=== PATIENT | female | born 1945 | race Caucasian/White ===

== ENCOUNTER → 2017-05-04 | Day surgery (SDC) | payer MEDICARE ==
[~2017-05-04] MED LIST: BUPIVACAINE HCL PF 0.5% 10 ML VIAL ONE; COZA50TA PO; ESTR.625 PO; FLUT1SPR9 EACH NARE; HYDR25TA5 PO; ISOSULFAN BLUE 50 MG/5 ML VIAL SQ ONE; KETOROLAC TROMETHAMINE 30 MG/ML (IVP) VIAL ONE; LACTATED RINGER'S 1000 ML INJ 1,000 ML ONE; MIDAZOLAM HCL 2 MG/2 ML VIAL ONE; MORPHINE SULFATE 4 MG/ML INJ ONE; ONDANSETRON HCL 4 MG/2 ML VIAL IV PUSH ONE; PROPOFOL 100 MG/10 ML INJ IV ONE; SODIUM CHLORIDE 0.9% INJ 10 ML ONE; ceFAZolin INJ 1,000 MG VIAL ONE; oxyCODONE/ACETAMINOPHEN 5 MG/325 MG TAB ONE
--- NOTE | 2017-05-04 18:57 | TN ---
cc: ALLY REDDY DATE OF SURGERY: 05/04/2017. PRINCIPAL DIAGNOSIS: Left breast cancer. POSTOPERATIVE DIAGNOSIS Left breast cancer. PROCEDURE PERFORMED: Left breast lumpectomy and left axillary sentinel lymph node biopsy with intraoperative radiation therapy. SURGEON: Ally Reddy MD. ANESTHESIA: General via LMA device. INDICATIONS FOR THE PROCEDURE: The patient is a 71-year-old female who presented with a clinical stage I palpable upper inner left breast mass consistent with carcinoma. MRI failed to demonstrate other abnormalities and she has opted for breast conservation and intraoperative therapy. FINDINGS AT SURGERY: Since the mass was palpable, no preoperative localization was required. Five sentinel lymph nodes were removed. #1 had a count of 16,155 and was 1+ blue. #2 had a count of 14,032 and was 1+ blue. #3 had a count of 289 and #4 had a count of 255 and these were not blue. Lymph node #5 had a count of 80 and was not blue. TouchPrep analysis was not performed. DESCRIPTION OF THE PROCEDURE IN DETAIL: After informed consent was obtained and site verification was performed, the patient was brought to the radiology suite where she underwent peritumoral radionuclide injection and full scan lymphoscintigraphy. No internal mammary enhancement was identified. She was then brought to the major operating room where she underwent general anesthesia via LMA device. She was given a single dose of IV Ancef and sequential compression hose were placed. Then 4 cc of half-strength Lymphazurin were injected in the subareolar left breast and a 5-minute massage was performed. The left breast and arm were then prepped and draped in sterile fashion. The palpable lesion was identified at 10 o'clock 2 cm from the nipple and the perimeter of the mass was marked on the skin. A periareolar skin incision was created and anesthetized with 0.5% Marcaine plain. Sharp and electrocautery dissection was performed circumferentially around the palpable mass and the specimen was oriented with two sutures anteriorly, one short suture superiorly, and one long suture laterally. Inspection of the specimen did demonstrate that the medial margin appeared close and this was sharply re-incised with a stitch on the new margin. The posterior margin was the pectoralis muscle and the tumor did not appear to involve the muscle. Hemostasis was easily obtained with electrocautery and the specimen was sent for permanent pathologic evaluation. The fascia and deep breast tissue adjacent to the muscle were then mobilized circumferentially and a 3-0 Vicryl pursestring suture was used to reapproximate the tissue. A 3.5 cm applicator was placed into the lumpectomy wound and ultrasound did demonstrate good conformance of the applicator to the cavity. Superiorly and inferiorly, the skin distance was greater than 1 cm and medially and laterally, the skin distance to the applicator was greater than 7 mm. The applicator was then placed in a sterile drape and secured to the radiation treatment device. A 2-0 Prolene pursestring suture was placed in the subcutaneous tissue. The applicator was advanced sterilely until it had been placed within the lumpectomy cavity and the anterior pursestring suture was secured. Ultrasound again demonstrated good conformance of the applicator to the cavity with the [id number] distances as noted. Radiation treatment then commenced for a total of 17 minutes. Once completed, the pursestring suture was cut and the applicator was removed from the lumpectomy cavity. Good hemostasis was noted in the lumpectomy cavity and the wound was closed using interrupted 3-0 Vicryl subcutaneous sutures and a 4-0 Monocryl subcuticular suture. A left axillary incision was then anesthetized at the inferior aspect of the left axillary hairline. Sharp and electrocautery dissection were performed until the level I axillary space was entered. Two enlarged blue lymph nodes were immediately identified in mid level I and each of these was circumferentially dissected free from surrounding structures using the harmonic scalpel with the counts as noted. Some higher level I lymph nodes were also identified and these were circumferentially dissected free from surrounding structures with the counts as noted. Some mildly palpable lateral level I lymph nodes were also noted and these were circumferentially dissected free from surrounding structures using the harmonic scalpel. These had no count and were sent as a permanent axillary specimen. Hemostasis was easily obtained with the harmonic scalpel and the wound was closed using interrupted 3-0 Vicryl subcutaneous sutures and a 4-0 Monocryl subcuticular suture. Steri-Strips and sterile dressings were applied to both wounds. The patient tolerated the procedure well with an estimated blood loss of 50 mL and she was extubated in the operating room and brought to the recovery room in good condition. All sponge and needle counts were correct at the conclusion of the case. MD BABATUNDE Mccain/OTILIO /4:49 PM /6:49 PM
--- NOTE | 2017-05-09 11:33 | RADONCOP ---
OPERATIVE REPORT DATE OF SURGERY: 05/04/2017 REFERRING PHYSICIAN: Ally Chávez PREOPERATIVE DIAGNOSIS: C50.212 - Malignant neoplasm of upper-inner quadrant of left female breast, Diagnosed 04/26/2017 (Active) POSTOPERATIVE DIAGNOSIS: C50.212 - Malignant neoplasm of upper-inner quadrant of left female breast, Diagnosed 04/26/2017 (Active) PROCEDURE: Intraoperative Radiation Therapy to the . SURGEON: Ally Chávez ANESTHESIA: General ESTIMATED BLOOD LOSS: Minimal INDICATIONS: Patient is a 71 year old female presenting with . She has elected to receive targeted intraoperative radiation therapy to the . DESCRIPTION OF PROCEDURE: Patient was taken to the operating room and placed on the table in the supine position. Following induction of general anesthesia, the and arm were prepped and draped sterilely. Ultrasound was performed of the breast to document the location of the breast malignancy. The wound was prepared for intraoperative radiation therapy. Based on the diameter of the cavity, a 3.5cm radiation applicator was selected for the delivery of intraoperative radiation therapy. The applicator was then sterilely mounted onto the Intrabeam Stand. Retracting sutures were placed within the skin to be used to retract the skin edges away from the radiation source. The 3.5cm Radiation applicator was then sterilely inserted into the wound. The superficial purse-string suture was tied down. Ultrasound was performed of the breast to document conformity of the surgical margins and the distance from the applicator to the skin surface (0.77cm). The retracting sutures were then secured and a moistened lap pad was placed on the skin surface, followed by an external radiation barrier. Intraoperative radiotherapy was then initiated by the Radiation Oncologist. Total treatment time was 15 minutes. Upon completion of the intraoperative radiotherapy treatment, the radiation applicator, purse-string sutures and retracting sutures were removed from the wound. The wound was once again irrigated. Hemostasis was confirmed. The patient was then turned back over to the surgeon, Ally Chávez in stable condition for completion of surgical procedure. Kristian Linda MD 05/09/2017 11:33:27 AM This report was verified and signed electronically [facility] [address] [place] [id number] RADIATION ONCOLOGY OPERATIVE REPORT Date: 05/04/2017 Patient Name: Diane Oseguera
--- NOTE | 2017-05-09 11:34 | RADONCENDT ---
END OF TREATMENT SUMMARY PRIMARY REFERRING PHYSICIAN: Ally Chávez CC: Ally Chávez DIAGNOSIS: Primary C50.212 - Malignant neoplasm of upper-inner quadrant of left female breast, Diagnosed 04/26/2017 (Active) PRESCRIPTION AND TREATMENT: 2000 cGy to surface of applicator- TREATED PLAN FRACTIONS AND DATES: Course: One fraction delivered on 05/04/2017 TOLERANCE: Patient completed treatment without complications. FOLLOW UP PLAN: Patient to be seen in 6 weeks. Kristian Linda MD 05/09/2017 11:33:45 AM This report was verified and signed electronically [facility] [address] [place] [address] RADIATION ONCOLOGY END OF TREATMENT SUMMARY Date: 05/04/2017 Patient Name: Diane Oseguera Date of : 1945 Age: 71 Sex: Female
== END | disposition home or self-care (01) ==
LOC: ESDC 09:24
PROVIDERS: ATTEND Surgery
DX: C50.212 Malignant neoplasm of upper-inner quadrant of left female breast (principal)
CPT/HCPCS: 01610; 19298; 19301; 38525; 38792; 88307; J0690; J1885; J2250; J2270; J2405; J3010; J7120; Q9968; 77290; 77300; 77334; 77370; 77424; 77469